=== PATIENT | female | born 1995 | race Caucasian/White ===

== ENCOUNTER 2018-01-19 08:47 | Outpatient (CLI) | payer OTHER ==
[~2018-01-19] VITALS: Ht 167.6 cm; Wt 81.1 kg
[~2018-01-19 08:47] MED LIST: DOCU-131 PO; IBUP-1222 PO
[2018-01-19 09:17] LABS: BASOPHILS # (AUTO) 0.04 x10^3/uL (0-0.1); BASOPHILS % (AUTO) 0 % (0-1); EOSINOPHILS # (AUTO) 0.12 x10^3/uL (0-0.4); EOSINOPHILS % (AUTO) 1 % (1-7); LYMPHOCYTES # (AUTO) 2.14 x10^3/uL (1-3.4); LYMPHOCYTES % (AUTO) 18 % (22-44); MD NO; MEAN CORPUSCULAR HEMOGLOBIN 28.2 pg (27.0-34.8); MEAN CORPUSCULAR HGB CONC 33.1 g/dL (32.4-35.8); MEAN CORPUSCULAR VOLUME 85.3 fL (80-100); MEAN PLATELET VOLUME 9.2 fL (7.4-10.4); MONOCYTES # (AUTO) 0.77 x10^3/uL (0.2-0.8); MONOCYTES % (AUTO) 7 % (2-9); NEUTROPHILS # (AUTO) 8.59 x10^3/uL (1.8-6.8); NEUTROPHILS % (AUTO) 74 % (42-75); PLATELET COUNT 167 x10^3/uL (130-400); RED BLOOD COUNT 4.29 x10^6/uL (3.82-5.3); RED CELL DISTRIBUTION WIDTH 13.5 % (9.6-15.2)
[2018-01-19 09:22] VITALS: BP 122/62
[2018-01-19 09:23] LABS: MICROSCOPIC AUTO
[2018-01-19 09:30] LABS: ALBUMIN 2.8 g/dL (3.4-5.0); ANION GAP 8 mmol/L (5-15); BILIRUBIN, DIRECT < 0.1 mg/dL (0.1-0.2); CALCIUM 8.2 mg/dL (8.5-10.1); CHLORIDE 108 mmol/L (98-107)
[2018-01-19 09:32] LABS: CREATININE 0.54 mg/dL (0.55-1.02)
[2018-01-19 09:33] LABS: ALANINE AMINOTRANSFERASE 17 U/L (12-78); ALKALINE PHOSPHATASE 130 U/L (45-117); BILIRUBIN,TOTAL 0.3 mg/dL (0.2-1.0); TOTAL PROTEIN 6.7 g/dL (6.4-8.2)
[2018-01-19 09:40] LABS: CREATININE,URINE RANDOM < 13.00 mg/dL; PROTEIN/CREATININE RATIO,URINE < 385 (0-200); TOTAL PROTEIN,URINE RANDOM < 5 mg/dL (0-12)
== END 2018-01-19 11:05 | disposition home or self-care (01) ==
LOC: LDOP 08:47
PROVIDERS: ATTEND Advanced Practice Midwife
DX: O26.893 Other specified pregnancy related conditions, third trimester (principal); R07.81 Pleurodynia; R11.0 Nausea; Z3A.33 33 weeks gestation of pregnancy
CPT/HCPCS: 36415; 59025; 80053; 81001; 82248; 82570; 84156; 84550; 85025; 99211; G0463

== ENCOUNTER 2018-03-04 06:18 | Inpatient (IN) | payer OTHER ==
[~2018-03-04] VITALS: Ht 167.6 cm; Wt 88.6 kg
[2018-03-04 06:35] VITALS: BP 133/74
[2018-03-04] MEDS ORDERED: OXYTOCIN 30U/ 0.9% NaCL 500ML 500 ML IV ONE (06:46)
[2018-03-04] MEDS ORDERED: D5%-LACTATED RINGERS 1,000 ML IV SCH (06:46)
[2018-03-04] MEDS ORDERED: OXYTOCIN 30U/ 0.9% NaCL 500ML 500 ML IV PRN (06:46)
[2018-03-04] MEDS ORDERED: LIDOCAINE/PF 1%, 30ML ONE (06:56)
[2018-03-04] MEDS ORDERED: NEWBORN KIT ONE (06:56)
[2018-03-04] MEDS ORDERED: MISOPROSTOL 200 MCG TABLET ONE (06:56)
[2018-03-04] MEDS ORDERED: OXYTOCIN 30U/ 0.9% NaCL 500ML 500 ML ONE ×2 (06:57→17:00)
[2018-03-04] MEDS ORDERED: CALCIUM CARBONATE 500 MG TAB.CHEW PO PRN (07:00)
[2018-03-04] MEDS ORDERED: ONDANSETRON 2MG/ML, 2ML IVPush PRN (07:00)
[2018-03-04] MEDS ORDERED: FENTANYL PF 100 MCG/2ML IV PRN (07:00)
[2018-03-04] MEDS ORDERED: FENTANYL PF 100 MCG/2ML IVPush PRN (07:00)
[2018-03-04] MEDS: LACTATED RINGERS 1,000 ML IV SCH ×2 (07:03→14:18)
[2018-03-04 07:20] LABS: BASOPHILS # (AUTO) 0.02 x10^3/uL (0-0.1); BASOPHILS % (AUTO) 0 % (0-1); EOSINOPHILS # (AUTO) 0.07 x10^3/uL (0-0.4); EOSINOPHILS % (AUTO) 1 % (1-7); LYMPHOCYTES # (AUTO) 2.18 x10^3/uL (1-3.4); LYMPHOCYTES % (AUTO) 21 % (22-44); MD NO; MEAN CORPUSCULAR HEMOGLOBIN 27.3 pg (27.0-34.8); MEAN CORPUSCULAR VOLUME 82.8 fL (80-100); MEAN PLATELET VOLUME 9.4 fL (7.4-10.4); MONOCYTES # (AUTO) 0.72 x10^3/uL (0.2-0.8); MONOCYTES % (AUTO) 7 % (2-9); NEUTROPHILS # (AUTO) 7.32 x10^3/uL (1.8-6.8); NEUTROPHILS % (AUTO) 71 % (42-75); PLATELET COUNT 161 x10^3/uL (130-400); RED BLOOD COUNT 4.28 x10^6/uL (3.82-5.3); RED CELL DISTRIBUTION WIDTH 14.4 % (9.6-15.2)
[2018-03-04] MEDS ORDERED: ONDANSETRON 4 MG TABLET ONE (16:22)
[2018-03-04] MEDS ORDERED: ONDANSETRON ODT 4 MG PO ONE (16:30)
[2018-03-04] MEDS: OXYTOCIN 30U/ 0.9% NaCL 500ML 500 ML IV SCH (18:31)
[2018-03-04] MEDS ORDERED: ACETAMINOPHEN 325 MG TABLET PO PRN (19:00)
[2018-03-04] MEDS ORDERED: CARBOPROST TROMETHAMINE 250 MCG/ML, 1ML IM PRN (19:00)
[2018-03-04] MEDS ORDERED: ONDANSETRON 2MG/ML, 2ML IV PRN (19:00)
[2018-03-04] MEDS ORDERED: DOCUSATE 100 MG CAPSULE PO PRN (19:00)
[2018-03-04] MEDS ORDERED: HYDROcodone/APAP 5/325 TABLET PO PRN ×2 (19:00)
[2018-03-04] MEDS ORDERED: MISOPROSTOL 200 MCG TABLET PR PRN (19:00)
[2018-03-04] MEDS ORDERED: METHYLERGONOVINE 0.2 MG/ML IM PRN (19:00)
[2018-03-04] MEDS ORDERED: IBUPROFEN 600 MG TABLET ONE (19:15)
[2018-03-04] MEDS: IBUPROFEN 600 MG TABLET PO PRN (19:22)
[2018-03-04 20:40] VITALS: BP 130/77
[2018-03-05 00:10] VITALS: BP 110/70
[2018-03-05] MEDS: IBUPROFEN 600 MG TABLET PO PRN ×2 (00:54→08:03)
[2018-03-05 04:00] VITALS: BP 105/72
[2018-03-05] MEDS: OXYTOCIN 30U/ 0.9% NaCL 500ML 500 ML IV SCH (04:31)
[2018-03-05 06:02] LABS: BASOPHILS # (AUTO) 0.02 x10^3/uL (0-0.1); BASOPHILS % (AUTO) 0 % (0-1); EOSINOPHILS # (AUTO) 0.03 x10^3/uL (0-0.4); EOSINOPHILS % (AUTO) 0 % (1-7); LYMPHOCYTES # (AUTO) 2.84 x10^3/uL (1-3.4); LYMPHOCYTES % (AUTO) 18 % (22-44); MD NO; MEAN CORPUSCULAR VOLUME 84.8 fL (80-100); MEAN PLATELET VOLUME 9.2 fL (7.4-10.4); MONOCYTES # (AUTO) 1.15 x10^3/uL (0.2-0.8); MONOCYTES % (AUTO) 7 % (2-9); NEUTROPHILS # (AUTO) 11.89 x10^3/uL (1.8-6.8); NEUTROPHILS % (AUTO) 75 % (42-75); PLATELET COUNT 141 x10^3/uL (130-400); RED BLOOD COUNT 3.88 x10^6/uL (3.82-5.3); RED CELL DISTRIBUTION WIDTH 14.2 % (9.6-15.2)
[2018-03-05 07:45] VITALS: BP 115/77
[2018-03-05] MEDS ORDERED: PRENATAL VIT/IRON/FA 1 EACH TABLET PO SCH (09:00)
== END 2018-03-05 12:50 | disposition home or self-care (01) | DRG 807 ==
LOC: LDIP 06:18 → 2NW 20:09
PROVIDERS: ADMIT Obstetrics & Gynecology Maternal & Fetal Medicine; ATTEND Obstetrics & Gynecology Maternal & Fetal Medicine
PROC: 10E0XZZ Delivery of Products of Conception, External Approach (ICD-10-PCS; principal; 2018-03-04)
PROC: 0KQM0ZZ Repair Perineum Muscle, Open Approach (ICD-10-PCS; 2018-03-04)
PROC: 10907ZC Drainage of Amniotic Fluid, Therapeutic from Products of Conception, Via Natural or Artificial Opening (ICD-10-PCS; 2018-03-04)
PROC: 3E033VJ Introduction of Other Hormone into Peripheral Vein, Percutaneous Approach (ICD-10-PCS; 2018-03-04)
DX: O69.81X0 Labor and delivery complicated by cord around neck, without compression, not applicable or unspecified (principal); Z37.0 Single live birth; O70.1 Second degree perineal laceration during delivery; Z90.89 Acquired absence of other organs; Z3A.39 39 weeks gestation of pregnancy; Z88.1 Allergy status to other antibiotic agents
CPT/HCPCS: 36415; 85025; 86850; 86900; G0378; J2590; J7120